=== PATIENT | male | born 1965 | race Caucasian/White ===

== ENCOUNTER 2018-12-05 00:47 | Emergency (ER) | payer MEDICAID ==
[~2018-12-05] VITALS: Ht 177.8 cm; Wt 52.6 kg
[2018-12-05 01:05] VITALS: BP 145/60
--- NOTE | 2018-12-05 01:05 | NUR ---
ED Nurse Note: Patient wal;ked in to ER c/o abdominal pain 01/26, N/V x3 days. AAO x4, VSS at this time, skin is warm to touch. Patient placing his fingers in his mouth making him self vomiting.
[2018-12-05] MEDS ORDERED: Morphine Sulfate 4mg/ml Inj (IV USE ONLY) IVP ONE (01:45)
[2018-12-05 01:53] LABS: HEMATOCRIT 37.9 % (42.0-52.0); HEMOGLOBIN 12.3 G/DL (14.2-18.0); MEAN CORPUSCULAR VOLUME 85 FL (80-99); PLATELET COUNT 194 K/UL (150-450); RED BLOOD COUNT 4.44 M/UL (4.70-6.10); RED CELL DISTRIBUTION WIDTH 12.7 % (11.6-14.8); WHITE BLOOD COUNT 10.4 K/UL (4.8-10.8)
[2018-12-05 02:13] LABS: ANION GAP 10 mmol/L (5-15); BLOOD UREA NITROGEN 10 mg/dL (7-18); CALCIUM 9.3 MG/DL (8.5-10.1); CARBON DIOXIDE 24 MMOL/L (21-32); CHLORIDE 103 MMOL/L (98-107); POTASSIUM 3.5 MMOL/L (3.5-5.1); SODIUM 137 MMOL/L (136-145)
[2018-12-05 02:17] LABS: ALANINE AMINOTRANSFERASE 39 U/L (12-78); ALBUMIN 3.9 G/DL (3.4-5.0); ALKALINE PHOSPHATASE 97 U/L (46-116); ASPARTATE AMINO TRANSFERASE 34 U/L (15-37); BILIRUBIN,TOTAL 0.9 MG/DL (0.2-1.0)
[2018-12-05] MEDS ORDERED: Haloperidol Lactate 5 MG in D5W 55 ML IVPB ONE (02:30)
[2018-12-05 03:11] VITALS: BP 135/70
[2018-12-05] MEDS ORDERED: ONDANSETRON ODT4 MG BC (04:59)
[2018-12-05] MEDS ORDERED: CAPSAICIN60 GM TP (04:59)
[2018-12-05 05:11] VITALS: BP 135/70
--- NOTE | 2018-12-05 05:14 | NUR ---
ER DISCHARGE NOTE: Patient is cleared to be discharged per ERMD, pt is aox4, on room air, with stable vital signs. pt was given dc and prescription instructions, pt was able to verbalize understanding, pt id band and iv site removed without complications. pt is able to ambulate with steady gait. pt took all belongings.
[2018-12-05] MEDS ORDERED: Capsaicin 0.075% Cream TOPIC ONE (05:15)
--- NOTE | 2018-12-05 07:11 | Emergency Room Report ---
History of Present Illness General Chief Complaint: Vomiting Source: Patient Present Illness HPI Patient is a 52-year-old male who presented after increased epigastric pain. 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 He reports having increased episodes of nausea and vomiting. Patient denies any fever. He reports smoking marijuana daily. He reports having some generalized weight loss. He denies any hematemesis or bloody stools. History is markedly limited by poor patient cooperation. Allergies: Coded Allergies: PROCHLORPERAZINE (Verified Allergy, Unknown, 12/05/18) Patient History Past Medical History: see triage record Reviewed Nursing Documentation: PMH: Agreed; PSxH: Agreed Nursing Documentation-PMH Past Medical History: No History, Except For Review of Systems All Other Systems: negative except mentioned in HPI Physical Exam Vital Signs Date Time Temp Pulse Resp B/P (MAP) Pulse Ox O2 Delivery O2 Flow Rate FiO2 12/05/18 00:45 98.2 60 18 145/60 (88) 98 Room Air Sp02 EP Interpretation: reviewed, normal General Appearance: normal inspection, alert, GCS 15, thin, Chronically Ill Head: atraumatic ENT: normal ENT inspection, hearing grossly normal, normal voice Neck: normal inspection, full range of motion, supple, no bony tend Respiratory: normal inspection, lungs clear, normal breath sounds, no respiratory distress, no retraction, no wheezing Cardiovascular #1: regular rate, rhythm, no edema Gastrointestinal: normal inspection, normal bowel sounds, non tender, soft, no guarding, no hernia Genitourinary: no CVA tenderness Musculoskeletal: normal inspection, back normal, normal range of motion Neurologic: normal inspection, alert, oriented x3, responsive, checker in III-XII nml as tested, speech normal Psychiatric: normal inspection, judgement/insight normal, mood/affect normal Medical Decision Making Diagnostic Impression: Primary Impression: Nonspecific abdominal pain ER Course Patient presented for abdominal pain. Differential diagnosis include was not limited to pancreatitis, marijuana hyperemesis, gastritis, ulcers, among others. Patient reports having multiple episodes of similar type pain. Laboratory testing showed no evidence of pancreatitis. Patient was noted to be inducing vomiting with his finger but does not appear to have any vomiting with not doing this. He was given IV medications for symptomatic relief. He was advised to quit smoking marijuana and that this may be contributing to his nausea and vomiting. Patient's laboratory testing was unremarkable. He was discharged home. He is advised to follow-up with his primary care physician for recheck he was to return if worse. Labs Test 12/05/18 01:40 White Blood Count 10.4 K/UL (4.8-10.8) Red Blood Count 4.44 M/UL (4.70-6.10) Hemoglobin 12.3 G/DL (14.2-18.0) Hematocrit 37.9 % (42.0-52.0) Mean Corpuscular Volume 85 FL (80-99) Mean Corpuscular Hemoglobin 27.6 PG (27.0-31.0) Mean Corpuscular Hemoglobin Concent 32.3 G/DL (32.0-36.0) Red Cell Distribution Width 12.7 % (11.6-14.8) Platelet Count 194 K/UL (150-450) Mean Platelet Volume 9.2 FL (6.5-10.1) Neutrophils (%) (Auto) % (45.0-75.0) Lymphocytes (%) (Auto) % (20.0-45.0) Monocytes (%) (Auto) % (1.0-10.0) Eosinophils (%) (Auto) % (0.0-3.0) Basophils (%) (Auto) % (0.0-2.0) Differential Total Cells Counted 100 Neutrophils % (Manual) 89 % (45-75) Lymphocytes % (Manual) 9 % (20-45) Monocytes % (Manual) 1 % (1-10) Eosinophils % (Manual) 1 % (0-3) Basophils % (Manual) 0 % (0-2) Band Neutrophils 0 % (0-8) Platelet Estimate Adequate Platelet Morphology Normal Erythrocyte Sedimentation Rate 16 MM/HR (0-20) Sodium Level 137 MMOL/L (136-145) Potassium Level 3.5 MMOL/L (3.5-5.1) Chloride Level 103 MMOL/L (98-107) Carbon Dioxide Level 24 MMOL/L (21-32) Anion Gap 10 mmol/L (5-15) Blood Urea Nitrogen 10 mg/dL (7-18) Creatinine 1.0 MG/DL (0.55-1.30) Estimat Glomerular Filtration Rate > 60 mL/min (>60) Glucose Level 192 MG/DL (74-106) Calcium Level 9.3 MG/DL (8.5-10.1) Total Bilirubin 0.9 MG/DL (0.2-1.0) Aspartate Amino Transf (AST/SGOT) 34 U/L (15-37) Alanine Aminotransferase (ALT/SGPT) 39 U/L (12-78) Alkaline Phosphatase 97 U/L (46-116) Troponin I 0.000 ng/mL (0.000-0.056) C-Reactive Protein, Quantitative < 0.4 mg/dL (0.00-0.90) Total Protein 7.8 G/DL (6.4-8.2) Albumin 3.9 G/DL (3.4-5.0) Globulin 3.9 g/dL Albumin/Globulin Ratio 1.0 (1.0-2.7) Lipase 69 U/L (73-393) Last Vital Signs Date Time Temp Pulse Resp B/P (MAP) Pulse Ox O2 Delivery O2 Flow Rate FiO2 12/05/18 05:11 98.2 62 18 135/70 98 Room Air Status: improved Disposition: HOME, SELF-CARE Condition: Stable Scripts Ondansetron Odt* (ZOFRAN ODT*) 4 Mg Tab.rapdis 4 MG BC EVERY 8 HOURS, #10 TAB 0 Refills Prov: Rickie Rodarte MD 12/05/18 Capsaicin (CAPSAICIN) 60 Gm Cream..g. 1 APPLIC TP DAILY, #30 GM Prov: Rickie Rodarte MD 12/05/18 Referrals: NOT CHOSEN IPA/MD,REFERRING (PCP) Patient Instructions: Nausea and Vomiting, Adult Additional Instructions: Do not use marijuana. Follow up with your doctor in the next 1-2 days for recheck. Rickie Rodarte MD Dec 05, 2018 07:11
== END 2018-12-05 05:16 | disposition home or self-care (01) ==
LOC: EDBD 00:47 → EMR 03:36
DX: R10.13 Epigastric pain (principal); R11.2 Nausea with vomiting, unspecified; Z88.8 Allergy status to other drugs, medicaments and biological substances
CPT/HCPCS: 36415; 80053; 83690; 84484; 85007; 85025; 85651; 86140; 96374; 96375; 99284; J1630; J2270; J2405